=== PATIENT | female | born 1985 | race Caucasian/White ===

== ENCOUNTER 2017-01-18 20:02 | Emergency (ER) | payer BC, OTHER ==
[2017-01-18] MEDS ORDERED: ACETAMINOPHEN 500 MG TABLET PO ONE (20:40)
[2017-01-18] MEDS ORDERED: KETOROLAC TROMETHAMINE 30 MG/ML VIAL IM ONE (20:40)
[2017-01-18] MEDS ORDERED: KETOROLAC TROMETHAMINE 30 MG/ML VIAL ONE (20:44)
--- NOTE | 2017-01-18 20:44 | ERNOTE ---
Headache ER HPI - Narrative Date of Service: 01/18/17 - General Presenting Symptoms: headache Time Seen by Provider: 01/18/17 21:00 Source: patient Exam Limitations: no limitations - Immun/Allergies/Home Medications Immunizations: IMMUNIZATION HX Immunizations Up to Date Yes History of Influenza Vaccine No Hx Pneumococcal Vaccination No Allergies/Adverse Reactions: Allergies No Known Allergies Allergy (Verified 01/18/17 20:19) Home Medications: HOME MEDICATIONS Naproxen [Naprosyn] 500 mg PO BID PRN #20 tablet 01/18/17 [Last Taken Unknown] diphenhydrAMINE HCL [Benadryl] 25 mg PO Q6H PRN 01/18/17 [Last Taken 01/18/17 18 :00] - History of Present Illness Narrative: 31 year old that has been having an occipital headache for the last three days. She rates the headache at a six, and is similar to other headaches that occurs about every three months; and is associated with her menses. Currently menstruating. She does not like taking medications and typically does not for these headaches. The patient is concerned about this headache since it has lasted longer that usual. Seen by her physician today and advised to take Benadryl, which did not resolve the pain. The headache is made a bit worse by light, but not noise or movement. No complaints of fevers, chills, nausea or vomiting. Date (Duration): 01/18/17 Activity at onset: other - at rest Timing of Headache: gradual Context Headache: Present: new onset Quality: Present: achy Severity Maximum: Present: moderate Severity-Currently: Present: moderate Headache frequency: Present: frequent headaches Modifying Factors - (Worsens): Reports: exposure to light Associated Symptoms: Denies: fever/chills, nausea, vomiting Exacerbated by:: Reports: light. Denies: noise, movement Prior Treament: Reports: recently seen, treated by physician Review of Systems - Review of Systems Constitutional: Present: no symptoms reported EYE: Present: no symptoms reported ENT: Present: no symptoms reported Respiratory: Present: no symptoms reported Cardiology: Present: no symptoms reported Gastrointestinal/Abdominal: Present: no symptoms reported Genitourinary: Present: no symptoms reported Musculoskeletal: Present: no symptoms reported Skin: Present: no symptoms reported Neurological: Present: no symptoms reported Endocrine: Present: no symptoms reported Hematologic/Lymphatic: Present: no symptoms reported Psych: Present: no symptoms reported - Patient's Past Medical History Patient History - Medical: No pertinent hx Patient History - Cardiac/Respiratory: No pertinent hx, Other Patient History - Cancer: No Hx of Cancer Patient History - Surgical Procedures: No surgical history Patient History - Other: None LMP (females 10-50): now - Social History Living Situations: home Abuse History: No History of abuse Psych History: No pertinent hx Smoking Status: Never smoker Alcohol Use: occasionally Drug Use: none - Immunizations Immunizations Up to Date: Yes Hx Pneumococcal Vaccination: No History of Influenza Vaccine: No Physical Exam - Physical Exam General Appearance: Present: no apparent distress Head Exam: Present: normal inspection Eye Exam: Normal inspection: bilateral, PERRL: bilateral Ears, Nose, Throat: Present: normal ENT inspection Neck: Present: normal inspection, other - Rubbing the right base of the skull decreases the discomfort. The right trapezius is tense and tender. Respiratory: Present: no respiratory distress Cardiovascular/Chest: Present: regular rate, rhythm Gastrointestinal/Abdominal: Present: nondistended Back Exam: Present: normal inspection Extremity Exam: Present: normal inspection Neurological Exam: Present: alert, oriented, normal mood/affect Skin Exam: Present: normal color ED Progress - Vital Signs Patient's Vital Signs:: I have reviewed the patient's vital signs. Vital Signs: Vital Signs 01/18/17 20:11 Temperature 36.8 C Pulse Rate 83 Respiratory 18 Rate Blood Pressure 149/94 O2 Sat by Pulse 99 Oximetry - Progress/Reassessment Chief Complaint: Headache Progress:: Improved Progress Note-Subjective: 01/18/17 21:09 Given Torodol 30 mg IM and Tylenol 1 gram. 01/18/17 21:56 Feeling much better after the medications. Departure Clinical Impression: Tension headache - Departure Disposition: Home self-care Condition: Good Instructions: Tension Headache, [id number] Language: Lithuanian Additional Instructions: Try Tylenol for your headaches when they occur. Referrals: Dylan Baca MD [Primary Care Provider] - Prescriptions: Naproxen [Naprosyn] 500 mg PO BID PRN #20 tablet PRN Reason: Pain
[2017-01-18 21:41] VITALS: BP 134/81
== END 2017-01-18 22:05 | disposition home or self-care (01) ==
LOC: ER 20:02
DX: G44.209 Tension-type headache, unspecified, not intractable (principal)